=== PATIENT | female | born 1965 | race Caucasian/White ===

== ENCOUNTER 2016-12-18 13:31 | Emergency (ER) | payer SELFPAY ==
[~2016-12-18] VITALS: Ht 160 cm; Wt 65.8 kg
[2016-12-18] MEDS ORDERED: SODIUM CHLORIDE FLUSH 10ML SYR IVF ONE (14:00)
[2016-12-18] MEDS ORDERED: ASPIRIN 81 MG TABLET CHEW PO ONE (14:00)
[2016-12-18 14:17] LABS: BLOOD UREA NITROGEN 9 mg/dL (7-18)
[2016-12-18 14:23] LABS: ASPARTATE AMINO TRANSFERASE 12 U/L (15-37)
[2016-12-18 15:40] LABS: IS PT STATUS REG ER OR PRE ER? YES
[2016-12-18] MEDS ORDERED: ASPIRIN 81 MG TABLET CHEW ONE (17:40)
[2016-12-18] MEDS ORDERED: MAALOX/HYOSCYAMINE/LIDOCAINE 45 ML BOTTLE PO ONE (18:00)
[2016-12-18] MEDS ORDERED: MAALOX/HYOSCYAMINE/LIDOCAINE 45 ML BOTTLE ONE (18:11)
[2016-12-18 19:19] VITALS: BP 118/72
== END 2016-12-18 19:20 | disposition home or self-care (01) ==
LOC: ED 19:00
DX: R07.89 Other chest pain (principal); R10.32 Left lower quadrant pain
CPT/HCPCS: 36415; 71010; 74176; 80053; 83690; 84484; 84703; 85025; 93005; 99285

== ENCOUNTER 2017-06-28 11:16 | Emergency (ER) | payer OTHER ==
[~2017-06-28] VITALS: Ht 160 cm; Wt 67.0 kg
[~2017-06-28 11:16] MED LIST: [UNRECOGNIZED DRUG - REMARK]
[2017-06-28 13:53] LABS: MICROSCOPIC NOT IND
[2017-06-28] MEDS ORDERED: ONDANSETRON 2MG/ML, 2ML IVPush ONE (14:00)
[2017-06-28] MEDS ORDERED: SODIUM CHLORIDE FLUSH 10ML SYR IVF ONE (14:00)
[2017-06-28] MEDS ORDERED: ONDANSETRON 2MG/ML, 2ML ONE (14:00)
[2017-06-28] MEDS ORDERED: SODIUM CHLORIDE 0.9% 1,000ML IVBOLUS ONE (14:00)
[2017-06-28] MEDS ORDERED: HYDROmorphone 1 MG/ML, 1ML IVPush PRN (14:00)
[2017-06-28] MEDS ORDERED: HYDROmorphone 1 MG/ML, 1ML ONE (14:00)
[2017-06-28 14:19] LABS: BASOPHILS # (AUTO) 0.04 x10^3/uL (0-0.1); BASOPHILS % (AUTO) 1 % (0-1); EOSINOPHILS # (AUTO) 0.37 x10^3/uL (0-0.4); EOSINOPHILS % (AUTO) 5 % (1-7); LYMPHOCYTES # (AUTO) 2.49 x10^3/uL (1-3.4); LYMPHOCYTES % (AUTO) 36 % (22-44); MD NO; MEAN CORPUSCULAR HGB CONC 34.3 g/dL (32.4-35.8); MEAN CORPUSCULAR VOLUME 93.3 fL (80-100); MEAN PLATELET VOLUME 9.3 fL (7.4-10.4); MONOCYTES # (AUTO) 0.49 x10^3/uL (0.2-0.8); MONOCYTES % (AUTO) 7 % (2-9); NEUTROPHILS # (AUTO) 3.51 x10^3/uL (1.8-6.8); NEUTROPHILS % (AUTO) 51 % (42-75); PLATELET COUNT 243 x10^3/uL (130-400); RED BLOOD COUNT 4.44 x10^6/uL (3.82-5.3); RED CELL DISTRIBUTION WIDTH 12.8 % (9.6-15.2)
[2017-06-28 14:31] LABS: ALANINE AMINOTRANSFERASE 43 U/L (12-78); ALBUMIN 3.5 g/dL (3.4-5.0); ANION GAP 9 mmol/L (5-15); CALCIUM 8.5 mg/dL (8.5-10.1); CHLORIDE 103 mmol/L (98-107)
[2017-06-28 14:36] LABS: ALKALINE PHOSPHATASE 90 U/L (45-117); BILIRUBIN,TOTAL 0.2 mg/dL (0.2-1.0); CREATININE 0.79 mg/dL (0.55-1.02); TOTAL PROTEIN 7.6 g/dL (6.4-8.2)
[2017-06-28 15:40] LABS: HEMOGLOBIN A1C 8.2 % (4.2-6.3)
[2017-06-28] MEDS ORDERED: OMNIPAQUE 350 MG/ML, 100ML BOTTLE ONE (15:48)
[2017-06-28 16:57] VITALS: BP 105/67
== END 2017-06-28 16:59 | disposition home or self-care (01) ==
LOC: ED 16:41
DX: R10.13 Epigastric pain (principal); K59.00 Constipation, unspecified; E11.65 Type 2 diabetes mellitus with hyperglycemia; K21.9 Gastro-esophageal reflux disease without esophagitis; Z90.49 Acquired absence of other specified parts of digestive tract
CPT/HCPCS: 36415; 74177; 80053; 81003; 83036; 83690; 84703; 85025; 96361; 96374; 96375; 99285; J1170; J2405; J7030; Q9967

== ENCOUNTER 2018-01-23 12:33 | Emergency (ER) | payer SELFPAY ==
[~2018-01-23] VITALS: Ht 160 cm; Wt 65.1 kg
[2018-01-23] MEDS ORDERED: ACETAMINOPHEN 500 MG TABLET ONE (13:17)
[2018-01-23] MEDS ORDERED: ACETAMINOPHEN 500 MG TABLET PO ONE (13:30)
[2018-01-23 13:31] LABS: MICROSCOPIC NOT IND
[2018-01-23 13:43] LABS: BASOPHILS # (AUTO) 0.03 x10^3/uL (0-0.1); BASOPHILS % (AUTO) 1 % (0-1); EOSINOPHILS # (AUTO) 0.28 x10^3/uL (0-0.4); EOSINOPHILS % (AUTO) 4 % (1-7); LYMPHOCYTES % (AUTO) 38 % (22-44); MD NO; MEAN CORPUSCULAR HEMOGLOBIN 31.8 pg (27.0-34.8); MEAN CORPUSCULAR HGB CONC 34.4 g/dL (32.4-35.8); MEAN CORPUSCULAR VOLUME 92.4 fL (80-100); MEAN PLATELET VOLUME 9.6 fL (7.4-10.4); MONOCYTES # (AUTO) 0.49 x10^3/uL (0.2-0.8); MONOCYTES % (AUTO) 8 % (2-9); NEUTROPHILS # (AUTO) 3.23 x10^3/uL (1.8-6.8); NEUTROPHILS % (AUTO) 50 % (42-75); PLATELET COUNT 242 x10^3/uL (130-400); RED BLOOD COUNT 4.08 x10^6/uL (3.82-5.3)
[2018-01-23 13:47] LABS: INTERNATIONAL NORMALIZED RATIO 1.01 (0.93-1.1); PROTHROMBIN TIME 10.4 Seconds (9.6-11.5)
[2018-01-23 13:49] LABS: CULTURE INDICATED? NO
[2018-01-23 13:49] LABS: ALANINE AMINOTRANSFERASE 31 U/L (12-78); ALBUMIN 3.4 g/dL (3.4-5.0); ANION GAP 9 mmol/L (5-15); CALCIUM 8.3 mg/dL (8.5-10.1); CHLORIDE 104 mmol/L (98-107); CREATININE 0.81 mg/dL (0.55-1.02)
[2018-01-23 13:51] LABS: ALKALINE PHOSPHATASE 97 U/L (45-117); BILIRUBIN,TOTAL 0.2 mg/dL (0.2-1.0); TOTAL PROTEIN 7.5 g/dL (6.4-8.2)
[2018-01-23 13:57] VITALS: BP 105/71
== END 2018-01-23 14:35 | disposition home or self-care (01) ==
LOC: ED 14:10
DX: R10.12 Left upper quadrant pain (principal); K76.0 Fatty (change of) liver, not elsewhere classified; E11.65 Type 2 diabetes mellitus with hyperglycemia; K21.9 Gastro-esophageal reflux disease without esophagitis
CPT/HCPCS: 36415; 74176; 80053; 81003; 83605; 83690; 85025; 85610; 99285

== ENCOUNTER 2019-06-01 20:04 | Emergency (ER) | payer SELFPAY ==
[~2019-06-01] VITALS: Ht 160 cm; Wt 62.8 kg
--- NOTE | 2019-06-01 20:09 | NUR ---
POISON INFORMATION SPECIALIST: NIL WHEN CALLED FOR TRIAGE
--- NOTE | 2019-06-01 20:25 | NUR ---
AUTOMOTIVE BRAKE SPECIALIST: NIL WHEN CALLED FOR TRIAGE
[2019-06-01] MEDS ORDERED: MORPHINE SULFATE 4 MG/ML, 1ML IVPush ONE (20:30)
[2019-06-01 20:48] VITALS: BP 123/73
--- NOTE | 2019-06-01 20:58 | NUR ---
EKG DONE IN TRIAGE. PATIENT TO XRAY
[2019-06-01 22:08] LABS: MICROSCOPIC NOT IND
[2019-06-01 22:13] LABS: BASOPHILS # (AUTO) 0.02 x10^3/uL (0-0.1); BASOPHILS % (AUTO) 0 % (0-1); EOSINOPHILS # (AUTO) 0.38 x10^3/uL (0-0.4); EOSINOPHILS % (AUTO) 5 % (1-7); LYMPHOCYTES # (AUTO) 3.41 x10^3/uL (1-3.4); LYMPHOCYTES % (AUTO) 45 % (22-44); MD NO; MEAN CORPUSCULAR HEMOGLOBIN 31.2 pg (27.0-34.8); MEAN CORPUSCULAR HGB CONC 33.2 g/dL (32.4-35.8); MEAN CORPUSCULAR VOLUME 94.1 fL (80-100); MEAN PLATELET VOLUME 9.4 fL (7.4-10.4); MONOCYTES % (AUTO) 7 % (2-9); NEUTROPHILS # (AUTO) 3.23 x10^3/uL (1.8-6.8); NEUTROPHILS % (AUTO) 43 % (42-75); PLATELET COUNT 271 x10^3/uL (130-400); RED BLOOD COUNT 4.44 x10^6/uL (3.82-5.3); RED CELL DISTRIBUTION WIDTH 13.3 % (9.6-15.2)
[2019-06-01 22:16] LABS: CULTURE INDICATED? NO
[2019-06-01 22:25] LABS: ALANINE AMINOTRANSFERASE 27 U/L (12-78); ALBUMIN 3.6 g/dL (3.4-5.0); ANION GAP 6 mmol/L (5-15); CALCIUM 9.2 mg/dL (8.5-10.1); CHLORIDE 105 mmol/L (98-107); CREATININE 0.81 mg/dL (0.55-1.02)
[2019-06-01 22:29] LABS: ALKALINE PHOSPHATASE 115 U/L (45-117); BILIRUBIN,TOTAL 0.1 mg/dL (0.2-1.0); TOTAL PROTEIN 8.2 g/dL (6.4-8.2); TROPONIN I < 0.015 ng/mL (0.000-0.045)
== END 2019-06-02 01:57 | disposition home or self-care (01) ==
LOC: ED 06-02 01:51
DX: K29.00 Acute gastritis without bleeding (principal); E11.65 Type 2 diabetes mellitus with hyperglycemia; K21.9 Gastro-esophageal reflux disease without esophagitis; Z90.89 Acquired absence of other organs
CPT/HCPCS: 36415; 74021; 80053; 81003; 83690; 84484; 85025; 93005; 99284

== ENCOUNTER → 2020-02-12 | Outpatient (CLI) | payer OTHER ==
[~2020-02-12] MED LIST changes: +No Meds at this Time
[2020-02-12 16:57] LABS: BASOPHILS # (AUTO) 0.03 x10^3/uL (0-0.1); BASOPHILS % (AUTO) 0 % (0-1); EOSINOPHILS # (AUTO) 0.27 x10^3/uL (0-0.4); EOSINOPHILS % (AUTO) 3 % (1-7); LYMPHOCYTES # (AUTO) 3.62 x10^3/uL (1-3.4); LYMPHOCYTES % (AUTO) 43 % (22-44); MD NO; MEAN CORPUSCULAR HEMOGLOBIN 31.2 pg (27.0-34.8); MEAN CORPUSCULAR HGB CONC 32.6 g/dL (32.4-35.8); MEAN CORPUSCULAR VOLUME 95.6 fL (80-100); MEAN PLATELET VOLUME 9.7 fL (7.4-10.4); MONOCYTES # (AUTO) 0.44 x10^3/uL (0.2-0.8); MONOCYTES % (AUTO) 5 % (2-9); NEUTROPHILS # (AUTO) 4.14 x10^3/uL (1.8-6.8); NEUTROPHILS % (AUTO) 49 % (42-75); PLATELET COUNT 263 x10^3/uL (130-400); RED BLOOD COUNT 4.51 x10^6/uL (3.82-5.3); RED CELL DISTRIBUTION WIDTH 13.2 % (9.6-15.2)
== END | disposition home or self-care (01) ==
LOC: STAR 15:17
PROVIDERS: ATTEND Obstetrics & Gynecology
DX: Z01.812 Encounter for preprocedural laboratory examination (principal); Z20.828 Contact with and (suspected) exposure to other viral communicable diseases
CPT/HCPCS: 36415; 84703; 85025; 87635

== ENCOUNTER 2020-02-16 15:19 | Day surgery (SDC) | payer OTHER ==
[~2020-02-16] VITALS: Ht 160 cm; Wt 60.4 kg
[2020-02-16 14:39] VITALS: BP 116/73
[~2020-02-16 15:19] MED LIST changes: +BUPIVACAINE/PF 0.25% ONE; +CHLORHEXIDINE 15 ML UDC MM STA; +EPINEPHRINE 1 MG/ML, 1ML ONE; +INTERCEED 3 X 4 INCH DRESSING ONE; +LACTATED RINGERS 1,000 ML IV SCH; +SILVER NITRATE STICK TP ONE
[2020-02-16] MEDS ORDERED: FENTANYL PF 100 MCG/2ML ONE ×2 (16:17→17:32)
[2020-02-16] MEDS ORDERED: MIDAZOLAM 1 MG/ML, 2ML ONE (16:17)
[2020-02-16] MEDS ORDERED: morphine SULFATE 10 MG/ML, 1ML IVPush PRN (16:30)
[2020-02-16] MEDS ORDERED: FENTANYL PF 100 MCG/2ML IV PRN (16:30)
[2020-02-16] MEDS ORDERED: HYDROcodone/APAP 7.5-325MG/15ML UDC PO PRN (16:30)
[2020-02-16] MEDS ORDERED: OXYcodone 5 MG/5 ML ORAL.SOL UDC PO PRN (16:30)
[2020-02-16] MEDS ORDERED: PROMETHAZINE 25 MG/ML, 1ML IVPush PRN (16:30)
[2020-02-16] MEDS ORDERED: ONDANSETRON 2MG/ML, 2ML ONE (16:34)
[2020-02-16] MEDS ORDERED: DEXAMETHASONE 4 MG/ML, 1ML ONE (16:34)
[2020-02-16] MEDS ORDERED: SUGAMMADEX 200 MG/2 ML IVPush ONE (17:04)
[2020-02-16] MEDS ORDERED: OXYcodone 5 MG/5 ML ORAL.SOL UDC ONE (17:33)
== END 2020-02-16 18:30 | disposition home or self-care (01) ==
LOC: OR 15:19
PROVIDERS: ATTEND Obstetrics & Gynecology
DX: N87.1 Moderate cervical dysplasia (principal); E11.9 Type 2 diabetes mellitus without complications; Z79.899 Other long term (current) drug therapy; Z88.0 Allergy status to penicillin; Z90.49 Acquired absence of other specified parts of digestive tract; Z83.3 Family history of diabetes mellitus
CPT/HCPCS: 57520; 82962; 88305; 88307; 88342; J1100; J2250; J2405; J3010; J3490; J0171